=== PATIENT | female | born 1940 | race Caucasian/White ===

== ENCOUNTER 2017-01-28 13:34 | Emergency (ER) | payer MEDICARE ==
[2017-01-28] MEDS ORDERED: NORMAL SALINE 1000 ML 1,000 ML IV ONE ×2 (14:15→14:47)
--- NOTE | 2017-01-28 14:15 | ER Document Report ---
ED Medical Screen (RME) - General Chief Complaint: Abdominal Pain Stated Complaint: ABDOMINAL PAIN,URINARY ISSUES Time Seen by Provider: 01/28/17 14:13 Notes: several days of persistent left flank pain TRAVEL OUTSIDE OF THE [place] IN LAST 30 DAYS: No - Related Data Allergies/Adverse Reactions: lactose Allergy (Intermediate, Verified 01/28/17 13:47) Diarrhea Past Medical History - Past Medical History Cardiac Medical History: Denies: Hx Heart Attack, Hx Hypertension Pulmonary Medical History: Reports: Hx COPD Denies: Hx Asthma Neurological Medical History: Denies: Hx Cerebrovascular Accident, Hx Seizures Renal/ Medical History: Denies: Hx Peritoneal Dialysis GI Medical History: Denies: Hx Hepatitis, Hx Hiatal Hernia, Hx Ulcer Infectious Medical History: Denies: Hx Hepatitis Past Surgical History: Denies: Hx Hysterectomy, Hx Mastectomy, Hx Open Heart Surgery, Hx Pacemaker Physical Exam - Vital signs Vitals: Temp Pulse Resp BP Pulse Ox 97.6 F 105 H 16 99/65 L 97 01/28/17 13:48 01/28/17 13:48 01/28/17 13:48 01/28/17 13:48 01/28/17 13:48 Course - Vital Signs Vital signs: Temp Pulse Resp BP Pulse Ox 97.6 F 105 H 16 99/65 L 97 01/28/17 13:48 01/28/17 13:48 01/28/17 13:48 01/28/17 13:48 01/28/17 13:48
[2017-01-28 15:39] LABS: ABSOLUTE MONOCYTES (AUTO) 0.8 10^3/uL (0.1-1.4); ABSOLUTE NEUT (AUTO) 7.1 10^3/uL (1.7-8.2); BASOPHILS % (AUTO) 0.5 % (0-2); EOSINOPHILS % (AUTO) 0.2 % (0-6); HEMATOCRIT 44.2 % (36.0-47.0); HEMOGLOBIN 15.2 g/dL (12.0-15.5); HGB HCT DIFFERENCE 1.4; LYMPHOCYTES % (AUTO) 10.9 % (13-45); MEAN CORPUSCULAR HEMOGLOBIN 32.6 pg (27.0-33.4); MEAN CORPUSCULAR HGB CONC 34.5 g/dL (32.0-36.0); MEAN CORPUSCULAR VOLUME 95 fl (80-97); MONOCYTES % (AUTO) 8.7 % (3-13); RED BLOOD COUNT 4.67 10^6/uL (3.72-5.28); RED CELL DISTRIBUTION WIDTH 13.1 % (11.5-14.0); SEGMENTED NEUTROPHILS % (AUTO) 79.7 % (42-78)
[2017-01-28 16:01] LABS: ALANINE AMINOTRANSFERASE 19 U/L (9-52); ALBUMIN 4.3 g/dL (3.5-5.0); ALKALINE PHOSPHATASE 95 U/L (38-126); ANION GAP 13 (5-19); ASPARTATE AMINO TRANSFERASE 25 U/L (14-36); BILIRUBIN,DIRECT 0.5 mg/dL (0.0-0.4); BILIRUBIN,TOTAL 0.8 mg/dL (0.2-1.3); BLOOD UREA NITROGEN 10 mg/dL (7-20); CALCIUM 9.5 mg/dL (8.4-10.2); CARBON DIOXIDE 26 mmol/L (22-30); CHLORIDE 84 mmol/L (98-107); GLUCOSE 173 mg/dL (75-110); POTASSIUM 3.3 mmol/L (3.6-5.0); SODIUM 123.3 mmol/L (137-145); TOTAL PROTEIN 7.9 g/dL (6.3-8.2)
[2017-01-28 16:03] LABS: VENOUS BLOOD BASE EXCESS 3.5 mmol/L; VENOUS BLOOD HCO3 28.9 mmol/L (20-32); VENOUS BLOOD PCO2 46.6 mmHg (35-63); VENOUS BLOOD PH 7.41 (7.30-7.42)
--- NOTE | 2017-01-28 16:30 | ER Document Report ---
ED GI/ - General Chief Complaint: Abdominal Pain Stated Complaint: ABDOMINAL PAIN,URINARY ISSUES Time Seen by Provider: 01/28/17 14:13 Notes: Patient says that she began to have problems with urinating and bowel movements about 3 weeks ago. She says that she is unable to urinate but maybe once a day during the daytime, but can go 2 or 3 times during the night. She says she thinks it is because she is more relaxed at night. Her last urination was this morning. She used to be rather regular with her bowel movements but now goes 3- 4 days without a bowel movement. She vomited about 6 times last night, but has not vomited any other times. She had one episode of diarrhea about 3 or 4 days ago but that was after taking a laxative. That was also her last bowel movement. She has not seen any blood in her stools or black stools. She is having pain in her lower abdomen bilaterally. Denies any urinary tract symptoms. Denies any URI symptoms. Has not had any fevers. PMH: Hernia repair many years ago. No other surgeries. Does not take any prescription medications for anything. Does not have a local doctor. TRAVEL OUTSIDE OF THE [place] IN LAST 30 DAYS: No - Related Data Allergies/Adverse Reactions: lactose Allergy (Intermediate, Verified 01/28/17 13:47) Diarrhea Past Medical History - Social History Smoking Status: Current Every Day Smoker Chew tobacco use (# tins/day): Yes Frequency of alcohol use: Occasional Drug Abuse: None Family History: Reviewed & Not Pertinent Patient has suicidal ideation: No Patient has homicidal ideation: No Pulmonary Medical History: Reports: Hx COPD Past Surgical History: Reports: Hx Herniorrhaphy - Immunizations Hx Diphtheria, Pertussis, Tetanus Vaccination: No Review of Systems - Review of Systems Notes: REVIEW OF SYSTEMS: CONSTITUTIONAL : Denies fever. EENT: Denies eye, ear, nose or mouth or throat pain or other symptoms. CARDIOVASCULAR: Denies chest pain. RESPIRATORY: Denies cough, chest congestion, or shortness of breath. GASTROINTESTINAL: See HPI. GENITOURINARY: Denies difficulty or painful urinating, urinary frequency, blood in urine. MUSCULOSKELETAL: Denies back or neck pain. Denies joint pain or swelling. SKIN: Denies rash or skin lesions. NEUROLOGICAL: Denies LOC or altered mental status. Denies headache. Denies sensory loss or motor deficits. ALL OTHER SYSTEMS REVIEWED AND NEGATIVE. Physical Exam - Vital signs Vitals: Temp Pulse Resp BP Pulse Ox 97.6 F 105 H 16 99/65 L 97 01/28/17 13:48 01/28/17 13:48 01/28/17 13:48 01/28/17 13:48 01/28/17 13:48 Interpretation: Normal, Hypotensive - Slightly low, but patient is a small statured individual, Tachycardic - Minimal - Notes Notes: PHYSICAL EXAMINATION: GENERAL: Well-appearing, in no acute distress. HEAD: Atraumatic, normocephalic. EYES: Pupils equal round and reactive to light, extraocular movements intact. ENT: oropharynx clear without exudates. Moist mucous membranes. NECK: Normal range of motion, supple. LUNGS: Breath sounds clear and equal bilaterally. HEART: Regular rate and rhythm without murmurs. ABDOMEN: Soft, nontender. No guarding or rebound. No right upper quadrant tenderness and no epigastric tenderness. No tenderness in the right lower quadrant. Rectal exam shows brown to yellow colored stool with no blood present. No masses felt. No fecal impaction noted. Only small amount of stool in the rectum. BACK: No tenderness throughout entire back. EXTREMITIES: Normal range of motion without pain. NEUROLOGICAL: Normal speech. Normal sensory, motor, and reflex exams. Awake, alert, and oriented x3. Cranial nerves normal. PSYCH: Normal mood, normal affect. SKIN: Warm, dry, no rashes. Course - Re-evaluation Re-evalutation: 01/29/17 00:20 Patient's sodium and chloride are low, but this is a chronic problem and she had severe hyponatremia previously some years ago which resulted in her being comatose, etc. So the family and the patient are familiar with this condition. I have talked to him about fluid restriction and about increasing salt intake. I recommended they follow-up with a local primary care provider in 10- 14 days and have the sodium and chloride rechecked at that time. I ordered a serum lipase on the patient's blood, but had already discharge the patient because I did not think clinically she has any symptoms to suggest pancreatitis. I ordered the lipase because of the radiology reading of the CT scan as possible pancreatitis. To my surprise, the patient's lipase came back at 2013. Still, patient does not clinically have a severe case of pancreatitis and has no physical findings on examination I will call the patient and her daughter tomorrow to make them aware of this finding. She is going to need to follow-up with a local provider and have her sodium and chloride levels checked in a couple of weeks anyway. The longer she remains is asymptomatic as she currently is for clinical pancreatitis, I do not think any change in her care plan is necessary. 01/29/17 10:53 Late entry: I ordered a lipase after the patient was discharged because the radiologist noter possible inflammation of the pancreas on CT scan. Patient's lipase came back at 2013. Clinically she did not have a significant pancreatitis; no pain in epigastrium, no vomiting, etc. I called the patient and by speaker phone with her daughter, I went over the finding of elevated lipase and it's meaning. I recommend no change in the discharge plan except to have a repeat lipase done in 10 - 14 days, when she gets a repeat sodium and chloride done. Advised to be rechecked in the ED if worsening pain, vomiting, fever, or other new symptoms. Amie Cantu MD - Vital Signs Vital signs: Temp Pulse Resp BP Pulse Ox 97.7 F 88 16 112/88 H 100 01/28/17 20:44 01/28/17 20:44 01/28/17 20:44 01/28/17 20:44 01/28/17 20:44 - Laboratory Result Diagrams: 01/28/17 15:20 01/28/17 15:20 Laboratory results interpreted by me: 01/28/17 01/28/17 01/28/17 15:20 15:20 15:20 Seg Neutrophils % 79.7 H Lymphocytes % 10.9 L Sodium 123.3 L Potassium 3.3 L Chloride 84 L Glucose 173 H Direct Bilirubin 0.5 H Lipase 2014.3 H - Diagnostic Test Radiology reviewed: Image reviewed, Reports reviewed - CT scan of the abdomen and pelvis with oral contrast suggests constipation. There is also some inflammation in the area of the pancreas and possible pancreatitis suggested. Discharge - Discharge Clinical Impression: Hyponatremia, Abdominal pain, Constipation Condition: Stable Disposition: HOME, SELF-CARE Additional Instructions: Hyponatremia You have an abnormally low level of serum sodium, called hyponatremia. Low serum sodium may cause weakness, fatigue, confusion, or even seizures. Usually, low sodium is due to taking diuretics (water pills), combined with drinking too much water. It can also be due to excessive vomiting or diarrhea. If no obvious cause is evident, further evaluation will be necessary. If the hyponatremia results from taking diuretics, it's treated by restricting the amount of water you can drink. If it's due to vomiting and diarrhea, it's treated by drinking liberal amounts of rehydration solution (for example Lytren or Pedialyte). A follow-up blood test is often done to see that the sodium is returning to normal. Call the physician if you have severe weakness, muscle twitching or cramping, palpitations (pounding or irregular heartbeat), confusion, headache, seizures, or any other new or alarming symptoms. ABDOMINAL PAIN: There are many causes of abdominal pain. Pain can mean a serious problem requiring surgery (such as appendicitis). It can also be an innocent problem that goes away on its own (such as a viral infection). Often, time must pass to determine the cause of pain. The physician does not feel that hospitalization is necessary, at present. Things may change within the next 24 hours. Call the doctor or come back for re- examination if any problems occur, such as: (1) Pain that becomes more severe, steady, or becomes concentrated in one specific area. Also, pain that is more severe with movement or coughing. (2) Vomiting that persists or becomes more frequent. (3) Blood in the vomitus, urine, or bowel movements. Blood in the stool may have a tarry or black appearance. (4) Shaking chills or fever greater than 100 degrees F. (5) The abdomen becomes more distended or swollen. (6) Bowel movements cease. (7) Failure to improve as expected. NORMAL EXAM AND WORKUP: At this time, your examination and workup show no significant abnormality except low sodium and chloride levels and for what looks like constipation on the CT scan.. No other significant abnormal physical findings are noted. All laboratory, EKG, and imaging (x-ray, CT scans, ultrasound) studies that were ordered show no significant abnormality. Although your examination and all studies that were ordered showed no significant abnormal finding, there are no examinations and no studies that are 100% accurate. There is always the possibility that some abnormality could exist and not be detected with physical examination or within the limits and capabilities of laboratory and other studies. You should return or follow up as you were instructed on your visit today for further evaluation if your symptoms do not resolve. CONSTIPATION: Constipation is a common problem. It is especially likely as you get older. Constipation is a common cause of abdominal pain, but sometimes causes no symptoms at all. Causes of constipation include certain medications, dehydration, diets, inactivity, and low-fiber intake. Rarely, it can be a symptom of underlying disease. The physician has evaluated you for this. Avoid constipation by eating a diet high in fiber, fruits, and vegetables. Drink plenty of liquids. Get regular exercise. If possible, avoid constipating medicines like narcotic pain medication. Some vitamin tablets can cause constipation. Stool softeners may be needed for difficult cases. An excellent stool softener is Konsyl which is available at [employer], [employer]. Just add a teaspoon to a glass of pineapple or orange juice daily or twice a day if needed. Laxatives are useful for occasional constipation. You should use them only when necessary. Too-frequent use can make your bowels dependent on them. Some over the counter laxatives available without prescription are: Milk of Magnesia, 1-2 tablespoons twice a day Dulcolax, 5 mg pill or 10 mg suppository. Citrate of Magnesia, 4-5 ounces a day for a day or two For acute constipation, Fleet's Enemas and Dulcolax suppositories are helpful. Chronic, bed bug exterminator use of laxatives or enemas is not a good idea. Your bowel may become dependant on them. You do not need to have a bowel movement every day. Many people do fine with a bowel movement every three or four days. You should call your doctor or return for re-evaluation if you pass blood in the stool, or if you develop fever or increasing abdominal pain. BULK LAXATIVES: Bulk laxatives make the stool softer and bulkier. They're useful for preventing constipation. You can choose between psyllium, methylcellulose, and polycarbophil. They are available without a prescription. Psyllium brand names include Konsyl, Metamucil, Perdiem, Effer-Syllium and Hydrocil. It's available as powder, flavored drink powder, or chewable. The usual dose of psyllium powder is one heaping teaspoon in water each morning, increasing to twice a day if needed. [place] juice can disguise the slightly grainy texture. Methylcellulose is marketed as Citrucel and other brands. The average dose is two grams in a cup of water one to three times a day. Polycarbophil is marketed as Fiber-Con. Take two tablets with a cup of water one to three times a day. LAXATIVE: A laxative agent has been prescribed for your condition. This should result in passage of stool within 12 hours. Some mild intestinal cramping is common as the hard stool begins to move. You may have loose or runny stools for a short time. Contact your doctor if there is severe cramping, vomiting, or passage of blood. Return for further care if this medicine fails to improve your condition. FOLLOW-UP CARE: If you have been referred to a physician for follow-up care, call the physician s office for an appointment as you were instructed or within the next two days. If you experience worsening or a significant change in your symptoms, notify the physician immediately or return to the Emergency Department at any time for re-evaluation. You should have a repeat of your sodium and chloride level in a couple of weeks.. You should go ahead and register to be a patient at [facility].
[2017-01-28 17:40] LABS: APPEARANCE,URINE CLEAR; BILIRUBIN,URINE NEGATIVE (NEGATIVE); GLUCOSE, URINE NEGATIVE (NEGATIVE); KETONES,URINE NEGATIVE (NEGATIVE); LEUKOCYTE ESTERASE,URINE NEGATIVE (NEGATIVE); NITRITE,URINE NEGATIVE (NEGATIVE); PROTEIN,URINE NEGATIVE (NEGATIVE); URINE SPECIFIC GRAVITY 1.003; UROBILINOGEN,URINE NEGATIVE mg/dL (<2.0)
--- NOTE | 2017-01-28 19:45 | RADIOLOGY REPORT (SQ) ---
EXAM DESCRIPTION: CT ABD/PELVIS WITH IV ORAL COMPLETED DATE/TIME: 01/28/2017 7:20 pm REASON FOR STUDY: Lower abdominal pain with change in bowel movement COMPARISON: None. TECHNIQUE: CT scan of the abdomen and pelvis performed using helical scanning technique with dynamic intravenous contrast injection. No oral contrast. Images reviewed with lung, soft tissue, and bone windows. Reconstructed coronal and sagittal MPR images reviewed. Delayed images for evaluation of the urinary system also acquired. All images stored on PACS. All CT scanners at this facility use dose modulation, iterative reconstruction, and/or weight based d osing when appropriate to reduce radiation dose to as low as reasonably achievable (ALARA). [facility]: Dose Right [facility]: CareDose [facility]: Dose Right [facility]: Teradose 4D [facility]: [employer] CONTRAST TYPE AND DOSE: contrast/concentration: Isovue 370.00 mg/ml; Total Contrast Delivered: 36.0 ml; Total Saline Delivered: 65.0 ml Isovue 370 intravenously, 36 mL intravenously RENAL FUNCTION: Creatinine 0.6 RADIATION DOSE: Up-to-date CT equipment and radiation dose reduction techniques were employed. CTDIv ol: 4.8 mGy. DLP: 461 mGy-cm.. LIMITATIONS: None. FINDINGS: LOWER CHEST: The lung bases are clear. Coronary artery calcification noted. LIVER: Normal size. No masses. No dilated ducts. SPLEEN: Normal size. No focal lesions. PANCREAS: Slight hazy inflammatory type change about the pancreas, without pancreatic enlargement. C orrelate clinically for possible pancreatitis. GALLBLADDER: No identified stones by CT criteria. No inflammatory changes to suggest cholecystitis. ADRENAL GLANDS: No significant masses or asymmetry. RIGHT KIDNEY AND URETER: No solid masses. 2 cm nonobstructing calcification of the right renal fermín ex. No hydronephrosis or hydroureter. LEFT KIDNEY AND URETER: No solid masses. No significant calcifications. No hydronephrosis or hydr oureter. AORTA AND VESSELS: Dense aortic calcification without aneurysm. RETROPERITONEUM: No retroperitoneal adenopathy, hemorrhage or masses. BOWEL AND PERITONEAL CAVITY: Increase air and fecal material fills and distends the right and transve rse colon. Oral contrast is seen in mildl to moderate dilated small bowel loops with fluid levels. Can be traced to the distended cecum. Followup filming may be helpful to ribs or for transit. APPENDIX: Not seen. PELVIS: Mcrae catheter, with apparent in nondilated urinary bladder with thickening of the wall. ABDOMINAL WALL: No masses. No hernias. BONES: No significant or acute findings. OTHER: No other significant finding. IMPRESSION: Nonobstructing right renal calcification. Mcrae catheter, with air and diffuse wall thickening noted the urinary bladder. Constipation. Fecal material and air distend the right and transverse colon, with mild to moderate s mall bowel dilatation with fluid levels. Slight hazy inflammatory density noted about the pancreas, concerning for pancreatitis. TECHNICAL DOCUMENTATION: JOB ID: [id number] Quality ID # [id number]: Final reports with documentation of one or more dose reduction techniques (e.g., Au tomated exposure control, adjustment of the mA and/or kV according to patient size, use of iterative reconstruction technique) 2010 [email or web address]- All Rights Reserved
[2017-01-28 20:46] VITALS: BP 112/88
== END 2017-01-28 20:46 | disposition home or self-care (01) ==
LOC: ER 13:34
DX: K59.00 Constipation, unspecified (principal); E87.1 Hypo-osmolality and hyponatremia; R10.9 Unspecified abdominal pain; R11.10 Vomiting, unspecified; F17.210 Nicotine dependence, cigarettes, uncomplicated
CPT/HCPCS: 36415; 74177; 80053; 81001; 82272; 82803; 83605; 83690; 85025; 87040; 87086; 99284

== ENCOUNTER 2019-08-28 10:41 | Emergency (ER) | payer MEDICARE ==
--- NOTE | 2019-08-28 11:33 | ER Document Report ---
ED Fall - General Chief Complaint: Fall Stated Complaint: FALL INJURY Time Seen by Provider: 08/28/19 11:13 Primary Care Provider: LUDY LACEY MD [Primary Care Provider] - Follow up as needed Notes: HPI: 78-year-old female with a mechanical fall on multiple steps secondary to "slipping on the wet step". She did hit the right side of her head. No loss of consciousness. Patient is not on blood thinners. She denies any neck pain, anterior posterior rib pain, cough, shortness of breath, tanesha pain, midline back pain, pelvis pain, but does state pain to her right arm. She states tetanus is up-to-date. ROS: See HPI All other review of systems reviewed and otherwise negative Reviewed vital signs and nursing note as charted by RN. PHYSICAL EXAM: CONSTITUTIONAL: Alert and oriented and responds appropriately to questions. Well-appearing; well-nourished HEAD: Patient has a small hematoma to the right lateral side of her head EYES: PERRL; full extraocular range of motion ENT: Normal nose; no rhinorrhea; moist mucous membranes; pharynx without lesions noted NECK: Supple without meningismus; non-tender to palpation along the midline spine CARD: Regular rate and rhythm; no murmurs; symmetric distal pulses RESP: Normal chest excursion without splinting or tachypnea; breath sounds clear and equal bilaterally; no wheezes, no rhonchi, no rales ABD/GI: Normal bowel sounds; non-distended; soft, non-tender to deep palpation of all 4 quadrants of the abdomen BACK: The back appears normal and is non-tender to palpation EXT: Normal ROM in all joints; patient does have a skin tear abrasion to the right forearm, right knee, and dorsal aspect of the right hand SKIN: See above NEURO: CN 2-12 intact; 5/5 bilateral upper and lower extremity strength with sensation intact to light touch PSYCH: The patient's mood and manner are appropriate. Grooming and personal hygiene are appropriate. TRAVEL OUTSIDE OF THE [place] IN LAST 30 DAYS: No - Related data Allergies/Adverse Reactions: lactose Allergy (Intermediate, Verified 01/28/17 13:47) Diarrhea Home Medications: ABX for cellulitus to LLE, albuterol PRN for COPD Past Medical History - Social History Smoking Status: Current Every Day Smoker Frequency of alcohol use: daily Drug Abuse: None Family History: Reviewed & Not Pertinent Patient has homicidal ideation: No - Past Medical History Cardiac Medical History: Denies: Hx Heart Attack, Hx Hypertension Pulmonary Medical History: Reports: Hx COPD Denies: Hx Asthma Neurological Medical History: Denies: Hx Cerebrovascular Accident, Hx Seizures Renal/ Medical History: Denies: Hx Peritoneal Dialysis GI Medical History: Denies: Hx Hepatitis, Hx Hiatal Hernia, Hx Ulcer Infectious Medical History: Denies: Hx Hepatitis Past Surgical History: Reports: Hx Herniorrhaphy. Denies: Hx Hysterectomy, Hx Mastectomy, Hx Open Heart Surgery, Hx Pacemaker - Immunizations Hx Diphtheria, Pertussis, Tetanus Vaccination: No Physical Exam - Vital signs Vitals: Temp Pulse Resp BP Pulse Ox 98.1 F 85 18 184/71 H 96 08/28/19 10:54 08/28/19 10:54 08/28/19 10:54 08/28/19 10:54 08/28/19 10:54 Course - Re-evaluation Re-evalutation: 08/28/19 11:32 Given the above history and physical, we will obtain a CT scan of the head and x-ray of the right arm. I do not believe that the patient skin tear lesions are suturable. Patient was on the way to the primary care physician secondary to a sodium recheck given her low recent sodium values. She denies any inciting incident such as lightheadedness, dizziness, chest pain, weakness or numbness, vomiting, fevers, possibly causing the fall. Patient denies any neck pain and is not wearing a cervical collar in the room with EMS. 08/28/19 11:50 CT scan of the head shows an 8 mm left posterior temporal subdural hematoma with some minimal shift. I have added a coagulation profile. We will obtain a CT scan of the cervical spine and attempt to transfer the patient to a trauma center. 08/28/19 11:58 Patient has been accepted at [facility] by the trauma service. 08/28/19 12:25 No change in exam. Labs as recorded. We have completed the CT imaging of the cervical spine as well as an x-ray of the chest and pelvis. Final results are pending at transfer. We will provide a CD of all the imaging as the transfer agency is here for transfer. - Vital Signs Vital signs: Temp Pulse Resp BP Pulse Ox 98.1 F 85 18 184/71 H 96 08/28/19 10:54 08/28/19 10:54 08/28/19 10:54 08/28/19 10:54 08/28/19 10:54 Critical Care Note - Critical Care Note Total time excluding time spent on procedures (mins): 35 Discharge - Discharge Clinical Impression: Subdural hematoma, Skin tear Accidental fall Qualifiers: Encounter type: initial encounter Qualified Code(s): W19.XXXA - Unspecified fall, initial encounter Closed head injury Qualifiers: Encounter type: initial encounter Qualified Code(s): S09.90XA - Unspecified injury of head, initial encounter Contusion of right arm Qualifiers: Encounter type: initial encounter Qualified Code(s): S40.021A - Contusion of right upper arm, initial encounter Condition: Serious Disposition: da Health Referrals: LUDY LACEY MD [Primary Care Provider] - Follow up as needed
--- NOTE | 2019-08-28 11:57 | RADIOLOGY REPORT (SQ) ---
EXAM DESCRIPTION: CT HEAD WITHOUT IMAGES COMPLETED DATE/TIME: 08/28/2019 11:44 am REASON FOR STUDY: 11; fall COMPARISON: CT brain 06/08/2015 TECHNIQUE: Axial images acquired through the brain without intravenous contrast. Images reviewed wi th bone, brain and subdural windows. Additional sagittal and coronal reconstructions were generated. Images stored on PACS. All CT scanners at this facility use dose modulation, iterative reconstruction, and/or weight based d osing when appropriate to reduce radiation dose to as low as reasonably achievable (ALARA). [facility]: Dose Right [facility]: CareDose [facility]: Dose Right [facility]: Teradose 4D [facility]: Smart TeamSnap RADIATION DOSE: CT Rad equipment meets quality standard of care and radiation dose reduction techniq ues were employed. CTDIvol: 53.2 mGy. DLP: 991 mGy-cm. mGy. LIMITATIONS: None. FINDINGS: An acute right posterior temporal and parietal subdural hemorrhage is present measuring ab out 8 mm greatest thickness, 64 Hounsfield units in density. There is mild local mass effect with guevara lcal effacement. Less than 5 mm of right to left subfalcine shift. Findings called Dr. Fisher in the emergency room 1140 hours 08/28/2019. VENTRICLES: Normal size and contour. CEREBRUM: No CT evidence of acute large territory ischemic change. No parenchymal hemorrhage. Mild bifrontal chronic small vessel white matter disease. CEREBELLUM: No masses. No hemorrhage. No alteration of density. No evidence for acute infarction. EXTRAAXIAL SPACES: Acute right posterior temporal and parietal subdural hemorrhage measuring 8 mm thi ckness, 64 Hounsfield units in density. There is mild local mass effect with sulcal effacement. Les s than 5 mm of right to left subfalcine shift. ORBITS AND GLOBE: Post cataract surgery CALVARIUM: No fracture. PARANASAL SINUSES: No fluid or mucosal thickening. SOFT TISSUES: No mass or hematoma. OTHER: No other significant finding. IMPRESSION: Acute right posterior temporal and parietal subdural hemorrhage with mandible right to l eft subfalcine shift EVIDENCE OF ACUTE STROKE: NO. COMMENT: Pertinent findings on the imaging study reported as a CRITICAL RESULT to GARY DALAL MD at 11:40 on 08/28/2019. Category of Critical Result: Acute right posterior temporal/ parietal subdural hemorrhage. Quality ID # 436: Final reports with documentation of one or more dose reduction techniques (e.g., Au tomated exposure control, adjustment of the mA and/or kV according to patient size, use of iterative reconstruction technique) TECHNICAL DOCUMENTATION: JOB ID: [id number] 2010 [employer]- All Rights Reserved Reading location - IP/workstation name: [email or web address]
--- NOTE | 2019-08-28 12:04 | RADIOLOGY REPORT (SQ) ---
EXAM DESCRIPTION: FOREARM RIGHT IMAGES COMPLETED DATE/TIME: 08/28/2019 11:54 am REASON FOR STUDY: 11;fall COMPARISON: None. NUMBER OF VIEWS: Two views. TECHNIQUE: Two radiographic images acquired of the right forearm, including elbow and wrist in at le ast one projection. LIMITATIONS: None. FINDINGS: MINERALIZATION: Osteopenic BONES: No acute fracture. No worrisome bone lesions. SOFT TISSUES: No obvious swelling or foreign body. OTHER: No other significant finding. IMPRESSION: NEGATIVE STUDY OF THE RIGHT FOREARM. NO RADIOGRAPHIC EVIDENCE OF ACUTE INJURY. TECHNICAL DOCUMENTATION: JOB ID: [id number] 2010 [employer]- All Rights Reserved Reading location - IP/workstation name: [email or web address]
--- NOTE | 2019-08-28 12:34 | RADIOLOGY REPORT (SQ) ---
EXAM DESCRIPTION: PELVIS AP IMAGES COMPLETED DATE/TIME: 08/28/2019 11:17 am REASON FOR STUDY: 11; trauma COMPARISON: None. NUMBER OF VIEWS: One view TECHNIQUE: AP Pelvis LIMITATIONS: None. FINDINGS: MINERALIZATION: Normal. HIPS: No acute fracture or dislocation. No worrisome bone lesions. PELVIS AND SACRUM: No acute fracture or dislocation. No worrisome bone lesions. PUBIS AND ISCHIUM: No acute fracture. LOWER LUMBAR SPINE: No significant findings as visualized. SOFT TISSUES: No findings. OTHER: No other significant finding. IMPRESSION: NEGATIVE STUDY OF THE PELVIS. COMMENT: Pelvic fractures are often occult on plain radiographs. If strong clinical suspicion for f racture, recommend CT or MR. TECHNICAL DOCUMENTATION: JOB ID: [id number] 2010 [employer]- All Rights Reserved Reading location - IP/workstation name: [email or web address]
--- NOTE | 2019-08-28 12:34 | RADIOLOGY REPORT (SQ) ---
EXAM DESCRIPTION: CHEST SINGLE VIEW IMAGES COMPLETED DATE/TIME: 08/28/2019 11:17 am REASON FOR STUDY: 11; trauma COMPARISON: 06/08/2019 EXAM PARAMETERS: NUMBER OF VIEWS: One view. TECHNIQUE: Single frontal radiographic view of the chest acquired. RADIATION DOSE: NA LIMITATIONS: None. FINDINGS: LUNGS AND PLEURA: Lungs are hyperinflated. Biapical pleural and parenchymal scarring is s table. No opacities, masses or pneumothorax. No pleural effusion. MEDIASTINUM AND HILAR STRUCTURES: No masses. Contour normal. HEART AND VASCULAR STRUCTURES: Heart normal in size. Normal vasculature. BONES: No acute findings. HARDWARE: None in the chest. OTHER: No other significant finding. IMPRESSION: NO ACUTE RADIOGRAPHIC FINDING IN THE CHEST. TECHNICAL DOCUMENTATION: JOB ID: [id number] 2010 [employer]- All Rights Reserved Reading location - IP/workstation name: [email or web address]
[2019-08-28 12:35] VITALS: BP 155/63
--- NOTE | 2019-08-28 12:48 | RADIOLOGY REPORT (SQ) ---
EXAM DESCRIPTION: CT CERVICAL SPINE WITHOUT IMAGES COMPLETED DATE/TIME: 08/28/2019 11:24 am REASON FOR STUDY: 11; fall COMPARISON: None. TECHNIQUE: Axial images acquired through the cervical spine without intravenous contrast. Images re viewed with lung, soft tissue and bone windows. Reconstructed coronal and sagittal MPR images review ed. Images stored on PACS. All CT scanners at this facility use dose modulation, iterative reconstruction, and/or weight based d osing when appropriate to reduce radiation dose to as low as reasonably achievable (ALARA). [facility]: Dose Right [facility]: CareDose [facility]: Dose Right [facility]: Teradose 4D [facility]: Smart [employer] RADIATION DOSE: CT Rad equipment meets quality standard of care and radiation dose reduction techniq ues were employed. CTDIvol: 6.4 mGy. DLP: 144 mGy-cm. mGy. LIMITATIONS: None. FINDINGS: ALIGNMENT: Anatomic. MINERALIZATION: Normal. VERTEBRAL BODIES: No acute fracture or loss of vertebral body height. Small marginal osteophytes wit h endplate sclerosis at C5-C6. No significant spinal canal stenosis. Sclerotic bone island at T2. No suspicious bone lesions. DISCS: Multilevel degenerative disc disease with loss of intervertebral disc height, mild. No signif icant disc bulge or spinal canal stenosis. FACETS, LATERAL MASSES, POSTERIOR ELEMENTS: Facet arthropathy with uncovertebral spurring on the left at C5-C6. Posterior elements and facets are intact. HARDWARE: None in the spine. VISUALIZED RIBS: No fractures. LUNG APICES AND SOFT TISSUES: Pulmonary emphysema at the lung apices. No focal consolidation. OTHER: No other significant finding. IMPRESSION: 1. No acute fracture or dislocation of the cervical spine. 2. Mild degenerative disc disease. Spondylosis and facet arthropathy at C5-C6. TECHNICAL DOCUMENTATION: JOB ID: [id number] Quality ID # 436: Final reports with documentation of one or more dose reduction techniques (e.g., Au tomated exposure control, adjustment of the mA and/or kV according to patient size, use of iterative reconstruction technique) 2010 [employer]- All Rights Reserved Reading location - IP/workstation name: [email or web address]
[2019-08-28 12:53] LABS: INTERNATIONAL RATION (INR) 0.88; PROTHROMBIN TIME 11.9 SEC (11.4-15.4)
[2019-08-28 12:54] LABS: PARTIAL THROMBOPLASTIN TIME 28.1 SEC (23.5-35.8)
[2019-08-28 13:07] LABS: ABSOLUTE BASOPHILS # (AUTO) 0.1 10^3/uL (0.0-0.2); ABSOLUTE LYMPHOCYTES (AUTO) 1.1 10^3/uL (0.5-4.7); ABSOLUTE MONOCYTES (AUTO) 0.9 10^3/uL (0.1-1.4); BASOPHILS % (AUTO) 0.8 % (0-2); EOSINOPHILS % (AUTO) 0.4 % (0-6); HEMOGLOBIN 16.1 g/dL (12.0-15.5); LYMPHOCYTES % (AUTO) 8.6 % (13-45); MEAN CORPUSCULAR HEMOGLOBIN 32.5 pg (27.0-33.4); MEAN CORPUSCULAR HGB CONC 33.6 g/dL (32.0-36.0); MEAN CORPUSCULAR VOLUME 97 fl (80-97); MONOCYTES % (AUTO) 6.5 % (3-13); PLATELET COUNT 399 10^3/uL (150-450); RED BLOOD COUNT 4.97 10^6/uL (3.72-5.28); RED CELL DISTRIBUTION WIDTH 13.8 % (11.5-14.0); SEGMENTED NEUTROPHILS % (AUTO) 83.7 % (42-78); TOTAL CELLS COUNTED % (AUTO) 100 %; WHITE BLOOD COUNT 13.2 10^3/uL (4.0-10.5)
[2019-08-28 13:17] LABS: ANION GAP 8 (5-19); BLOOD UREA NITROGEN 7 mg/dL (7-20); CALCIUM 9.8 mg/dL (8.4-10.2); CARBON DIOXIDE 28 mmol/L (22-30); CHLORIDE 96 mmol/L (98-107); GLUCOSE 124 mg/dL (75-110); POTASSIUM 4.6 mmol/L (3.6-5.0)
== END 2019-08-28 13:03 | disposition short-term general hospital (02) ==
LOC: ER 10:41
DX: S06.5X0A Traumatic subdural hemorrhage without loss of consciousness, initial encounter (principal); S51.811A Laceration without foreign body of right forearm, initial encounter; S81.011A Laceration without foreign body, right knee, initial encounter; S61.411A Laceration without foreign body of right hand, initial encounter; S40.021A Contusion of right upper arm, initial encounter; W10.9XXA Fall (on) (from) unspecified stairs and steps, initial encounter; Y92.009 Unspecified place in unspecified non-institutional (private) residence as the place of occurrence of the external cause; M50.30 Other cervical disc degeneration, unspecified cervical region; M47.812 Spondylosis without myelopathy or radiculopathy, cervical region; J44.9 Chronic obstructive pulmonary disease, unspecified; L03.116 Cellulitis of left lower limb; F17.200 Nicotine dependence, unspecified, uncomplicated; Z91.018 Allergy to other foods
CPT/HCPCS: 36415; 70450; 71045; 72125; 72170; 80048; 85025; 85610; 85730; 99291